=== PATIENT | female | born 1985 | race Caucasian/White ===

== ENCOUNTER 2016-12-20 13:59 | Emergency (ER) | payer OTHER ==
--- NOTE | 2016-12-20 15:45 | ED PDOC ---
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 States this is new for her. States she had a positive test. Reports abdominal pain, nausea, vomit. States she does not have vaginal bleeding. Last menstrual period was 10/14/2016. 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 12/20/16 [Edith Jaramillo 10-10 mg Tablet] Ondansetron ODT [Zofran ODT] 4 mg PO Q6 PRN #12 odt 12/20/16 Multivit/Folic Acid/I 0 tab PO DAILY #14 tab 12/20/16 [ Plus] - Allergies Allergies/Adverse Reactions: Allergies Allergy/AdvReac Type Severity Reaction Status Date / Time No Known Allergies Allergy Verified 12/20/16 16:34 Review of Systems ROS Statement: Except As Marked, All Systems Reviewed And Found Negative Gastrointestinal: Positive for: Nausea, Vomiting, Abdominal Pain, Constipation Physical Exam - Reviewed Nursing Documentation Reviewed: Yes Vital Signs Reviewed: Yes - Physical Exam Appears: Positive for: Well, Non-toxic, No Acute Distress Head Exam: Positive for: ATRAUMATIC, NORMAL INSPECTION, NORMOCEPHALIC Skin: Positive for: Warm, Dry Eye Exam: Positive for: EOMI, PERRL Cardiovascular/Chest: Positive for: Regular Rate, Rhythm Respiratory: Positive for: Normal Breath Sounds. Negative for: Rales, Rhonchi, Wheezing Gastrointestinal/Abdominal: Positive for: Soft. 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 Explained that only emergent conditions are worked up in the ED. Rh negative, Rhogam ordered after consent obtained [facility] service radiology practitioner assistant [id number] IUP demonstrated on TVUS. Results given in vincentian. Instructed on remedies for first trimester nausea and constipation. Rx diclegis also zofran if cannot afford diclegis but warned of risks. Followup OB 1-2 weeks. Disposition - Clinical Impression Clinical Impression: Hyperemesis gravidarum, Rh negative status during , Threatened miscarriage, Constipation - Patient ED Disposition Is Patient to be Admitted: No Counseled Patient/Family Regarding: Studies Performed, Diagnosis, Need For Followup, Rx Given - Disposition [facility]errals: [facility]Outside] [facility] [Outside] Disposition Time: 18:00 Condition: STABLE Additional Instructions: See clinic for full care. Return to ER for any new or worsening symptoms. Take medication as directed. Prescriptions: Doxylamine/Pyridoxine HCl [Diclegis Dr 10-10 mg Tablet] 1 each PO HS PRN #10 tablet.dr PRN Reason: Nausea/Vomiting Multivit/Folic Acid/I [ Plus] 0 tab PO DAILY #14 tab Ondansetron ODT [Zofran ODT] 4 mg PO Q6 PRN #12 odt PRN Reason: Nausea/Vomiting Instructions: Hyperemesis Gravidarum (ED), Constipation (ED) Print Language: BARBADIAN Additional Comments - Additional Comments Additional Comments: Scribe Attestation: Documented by Hilario Solis acting as a scribe for Chivo Kruger DO. Provider Scribe Attestation: All medical record entries made by the Scribe were at my direction and personally dictated by me. I have reviewed the chart and agree that the record accurately reflects my personal performance of the history, physical exam, medical decision making, and the department course for this patient. I have also personally directed, reviewed, and agree with the discharge instructions and disposition.
[2016-12-20 15:53] VITALS: BMI 19.0
[2016-12-20] MEDS ORDERED: Sodium Chloride 0.9% 1,000 ML IV STA (15:54)
[2016-12-20 17:05] LABS: RBC URINE 1 /hpf (0-3); URINE BILIRUBIN NEGATIVE (NEGATIVE); URINE BLOOD NEGATIVE (NEGATIVE); URINE COLOR STRAW (YELLOW); URINE GLUCOSE (UA) NEG (Normal); URINE KETONE 20 mg/dL (NEGATIVE); URINE LEUKOCYTE ESTERASE NEG Leu/uL (Negative); URINE PROTEIN NEGATIVE (NEGATIVE); URINE UROBILINOGEN 0.2-1.0 mg/dL (0.2-1.0); WBC URINE 1 /hpf (0-5)
[2016-12-20 17:08] LABS: BASO # 0.1 K/uL (0.0-0.2); BASO % 0.6 % (0.0-2.0); EOS # 0.2 K/uL (0.0-0.7); EOS % 2.4 % (0.0-4.0); HEMATOCRIT 31.8 % (34.0-47.0); LYMPH # 2.4 K/uL (1.0-4.3); LYMPH % 23.6 % (20.0-40.0); MEAN CELL VOLUME 93.1 fl (81.0-99.0); MEAN CORPUSCULAR HEMOGLOBIN 31.8 pg (27.0-31.0); MEAN CORPUSCULAR HGB CONC 34.2 g/dL (33.0-37.0); MEAN PLATELET VOLUME 8.6 fl (7.2-11.7); MONO # 0.7 K/uL (0.0-0.8); MONO % 6.9 % (0.0-10.0); NEUT # 6.7 K/uL (1.8-7.0); NEUT % 66.5 % (50.0-75.0); RED CELL DISTRIBUTION WIDTH 12.3 % (11.5-14.5); WHITE BLOOD COUNT 10.1 K/uL (4.8-10.8)
[2016-12-20 17:15] LABS: ALB/GLOB RATIO 1.2 (1.0-2.1); ALKALINE PHOSPHATASE 49 U/L (38-126); ALT/SGPT 29 U/L (9-52); AST/SGOT 22 U/L (14-36); BILIRUBIN,TOTAL 0.2 mg/dl (0.2-1.3); BLOOD UREA NITROGEN 9 mg/dl (7-17); CALCIUM 9.3 mg/dL (8.4-10.2); CARBON DIOXIDE 23 mmol/L (22-30); CHLORIDE 101 mmol/L (98-107); GFR AFRICAN-AMERICAN > 60; GLUCOSE,RANDOM 80 mg/dL (65-105); POTASSIUM 3.6 MMOL/L (3.6-5.0); SODIUM 132 mmol/l (132-148); TOTAL PROTEIN 6.9 G/DL (6.3-8.2)
--- NOTE | 2016-12-20 18:04 | US ---
Indication: 9 weeks , pelvic pain Comparison: None available Technique: Transvaginal pelvic ultrasound. Findings: The uterus measures approximately 9.4 x 5.3 x 8.3 cm. Anteverted. Cervix length measures approximately 4.2 cm. There is a single intrauterine fetus present. The gestational sac measures 4.2 cm and is compatible with a gestational age of 9 weeks 4 days. The crown-rump length measures 2.4 cm and is compatible with a gestational age of 9 weeks 1 day. There is heart motion which measured 167 BPM. The right ovary measures 3.6 x 1.7 x 3.2 cm and contains follicles. The left ovary measures 2.9 x 1.4 x 2.8 cm and contains follicles. Blood flow was demonstrated to both ovaries. Impression: Live single intrauterine with estimated gestational age 9 weeks 3 days. heart rate 167 bpm. Advise an anomaly screen at 16-18 weeks gestational age
[2016-12-20 20:40] VITALS: RESP 17; O2SAT 100
[2016-12-20 20:42] VITALS: BP 110/65; PULSE 73; TEMP 98.2
== END 2016-12-20 20:15 | disposition home or self-care (01) ==
LOC: H.ER 13:59
DX: O21.0 Mild hyperemesis gravidarum (principal); O20.0 Threatened abortion; O09.899 Supervision of other high risk pregnancies, unspecified trimester; K59.00 Constipation, unspecified; Z3A.09 9 weeks gestation of pregnancy; Z67.91 Unspecified blood type, Rh negative